=== PATIENT | male | born 1925 | race Caucasian/White ===

== ENCOUNTER 2017-03-13 09:55 | Inpatient (IN) | payer MEDICARE, OTHER ==
[~2017-03-13] VITALS: Ht 177.8 cm; Wt 98.9 kg
[~2017-03-13 09:55] MED LIST: AMIODARONE HCL200 MG PO; ASPIR-LOW81 MG PO; ASPIRIN 81M81 MG/TA2 PO; ASPIRIN E.C. 8181 MG PO; BUMEX0.5 MG PO; CEPHALEXIN500 M1 PO; COUMADIN 3MG3 MG/TAB PO; DILANTIN 100MG100 MG PO; GLUCOPHAGE1000 MG PO; GLUCOTROL XL2.5 MG PO; KEPPRA750 MG PO; LASIX 40MG TABL40 MG PO; NEURONTIN300 MG/CAP PO; PRAVACHOL 20MG20 MG PO; TOPROL XL50 MG PO
[2017-03-13 10:17] LABS: BASO # 0.1 (0.0-0.2); BASO % 0.5 % (0.0-2.0); EOS # 0.1 (0.0-0.7); EOS % 0.7 % (0-4.0); GRAN # 6.9 (1.4-6.5); GRAN % 72.6 % (42.2-75.2); HEMATOCRIT 38.5 % (42.0-52.0); HEMOGLOBIN 12.7 g/dl (13.5-18.0); LYMPH # 1.6 (1.2-3.4); LYMPH % 16.6 % (20.0-51.0); MEAN CELL VOLUME 92 fl (80.0-100.0); MEAN CORPUSCULAR HEMOGLOBIN 30 pg (27.0-31.0); MEAN CORPUSCULAR HGB CONC 33 g/dl (33.0-37.0); MEAN PLATELET VOLUME 9.9 fl (7.4-10.4); MONO # 0.9 (0.1-0.6); PLATELET COUNT 151 K/mm3 (130-400); REDCELL DISTRIBUTION WIDTH-CV 13.6 % (11.5-14.5)
[2017-03-13 10:35] LABS: BILIRUBIN,TOTAL 0.9 mg/dL (0.0-1.0); CALCIUM 9.4 mg/dL (8.4-10.2); CREATININE, serum 0.89 mg/dL (0.66-1.25); POTASSIUM 4.3 mmol/L (3.4-5.0); TOTAL PROTEIN 7.2 gm/dL (6.4-8.2)
[2017-03-13 10:39] LABS: INR 3.1 (0.8-3.0); PROTHROMBIN TIME 37.3 SECONDS (9.7-12.8)
[2017-03-13] MEDS ORDERED: COUMADIN 3MG3 MG/TAB PO (11:03)
[2017-03-13 13:25] VITALS: BP 117/60; PULSE 61
[2017-03-13] MEDS ORDERED: TOPROL XL100 MG PO (13:53)
[2017-03-13] MEDS ORDERED: TYLENOL 325MG325 MG PO (14:12)
[2017-03-13] MEDS ORDERED: MUCINEX 60600 MG/TA1 PO (14:13)
[2017-03-13] MEDS ORDERED: NASAL MOISTURIZ45 ML NS (14:14)
[2017-03-13 15:09] VITALS: BP 114/51; PULSE 61; TEMP 98.3
[2017-03-13 17:23] VITALS: BP 136/62; PULSE 65; TEMP 97.8
[2017-03-13 17:48] LABS: INFLUENZA A NEGATIVE; INFLUENZA B NEGATIVE
[2017-03-13 20:03] VITALS: BP 111/58; PULSE 60; TEMP 97.9
[2017-03-14] VITALS (7 sets, daily range): BP systolic 118–153; BP diastolic 54–71; PULSE 60–69; TEMP 97.6–98.3
[2017-03-14 17:57] LABS: INR 2.3 (0.8-3.0); PROTHROMBIN TIME 27.6 SECONDS (9.7-12.8)
[2017-03-15] VITALS (8 sets, daily range): BP systolic 109–176; BP diastolic 54–76; PULSE 61–90; TEMP 96.8–98.2
[2017-03-15 09:28] LABS: INR 2.3 (0.8-3.0); PROTHROMBIN TIME 27.5 SECONDS (9.7-12.8)
[2017-03-16 05:40] VITALS: BP 154/64; PULSE 35; TEMP 97.6
[2017-03-16 06:34] LABS: BASO % 0.3 % (0.0-2.0); EOS # 0.2 (0.0-0.7); EOS % 2.4 % (0-4.0); GRAN # 4.7 (1.4-6.5); GRAN % 65.5 % (42.2-75.2); HEMATOCRIT 37.3 % (42.0-52.0); LYMPH # 1.6 (1.2-3.4); LYMPH % 22.5 % (20.0-51.0); MEAN CELL VOLUME 93 fl (80.0-100.0); MEAN CORPUSCULAR HEMOGLOBIN 30 pg (27.0-31.0); MEAN CORPUSCULAR HGB CONC 32 g/dl (33.0-37.0); MEAN PLATELET VOLUME 10.1 fl (7.4-10.4); MONO # 0.6 (0.1-0.6); MONO % 8.9 % (1.7-9.3); PLATELET COUNT 168 K/mm3 (130-400); RED BLOOD COUNT 4.03 M/mm3 (4.20-5.60); REDCELL DISTRIBUTION WIDTH-CV 13.4 % (11.5-14.5)
[2017-03-16 06:38] LABS: HEMOGLOBIN 11.9 g/dl (13.5-18.0)
[2017-03-16 06:59] LABS: CREATININE, serum 0.73 mg/dL (0.66-1.25); POTASSIUM 3.9 mmol/L (3.4-5.0)
[2017-03-16 08:04] VITALS: BP 133/67; PULSE 63; TEMP 97.4
[2017-03-16] MEDS ORDERED: COUMADIN 22.5 MG/TAB PO (10:21)
[2017-03-16] MEDS ORDERED: AMOXICILLIN 8751 TAB PO (10:21)
[2017-03-16] MEDS ORDERED: TOPROL XL100 MG PO (10:22)
[2017-03-16 10:41] LABS: INR 2.2 (0.8-3.0)
[2017-03-16 10:51] VITALS: BP 133/67; PULSE 63; TEMP 97.4
== END 2017-03-16 12:22 | DRG 312 ==
LOC: COL.ER 09:55 → MEDICAL 12:06
PROVIDERS: Emergency Medicine; Internal Medicine; Nurse Practitioner Family; Physician Assistant
DX: I95.2 Hypotension due to drugs (principal); T44.7X5A Adverse effect of beta-adrenoreceptor antagonists, initial encounter; I10 Essential (primary) hypertension; E11.9 Type 2 diabetes mellitus without complications; I25.10 Atherosclerotic heart disease of native coronary artery without angina pectoris; Z95.5 Presence of coronary angioplasty implant and graft; I48.2 Chronic atrial fibrillation; Z95.0 Presence of cardiac pacemaker; J32.2 Chronic ethmoidal sinusitis; J32.0 Chronic maxillary sinusitis; Z87.891 Personal history of nicotine dependence; S00.83XA Contusion of other part of head, initial encounter; W18.30XA Fall on same level, unspecified, initial encounter
CPT/HCPCS: 99223-AI; 99232-AI; 99239; J1815; J2405; J7030

== ENCOUNTER 2017-05-14 20:10 | Emergency (ER) | payer MEDICARE, OTHER ==
[~2017-05-14] VITALS: Ht 177.8 cm; Wt 98.6 kg
[~2017-05-14 20:10] MED LIST changes: +AMOXICILLIN 8751 TAB PO; +COUMADIN 22.5 MG/TAB PO; +MUCINEX 60600 MG/TA1 PO; +NASAL MOISTURIZ45 ML NS; +TOPROL XL100 MG PO; +TYLENOL 325MG325 MG PO
[2017-05-14 20:16] VITALS: BP 195/104; PULSE 77; TEMP 97.5
[2017-05-14 20:44] LABS: COLLECTION METHOD CLEAN CATCH
[2017-05-14 20:46] LABS: BASO % 0.5 % (0.0-2.0); EOS # 0.1 (0.0-0.7); EOS % 1.2 % (0-4.0); GRAN # 6.2 (1.4-6.5); GRAN % 71.7 % (42.2-75.2); HEMATOCRIT 39.3 % (42.0-52.0); HEMOGLOBIN 12.8 g/dl (13.5-18.0); LYMPH # 1.6 (1.2-3.4); LYMPH % 18.8 % (20.0-51.0); MEAN CELL VOLUME 92 fl (80.0-100.0); MEAN CORPUSCULAR HEMOGLOBIN 30 pg (27.0-31.0); MEAN CORPUSCULAR HGB CONC 33 g/dl (33.0-37.0); MEAN PLATELET VOLUME 9.9 fl (7.4-10.4); MONO # 0.7 (0.1-0.6); MONO % 7.5 % (1.7-9.3); PLATELET COUNT 176 K/mm3 (130-400); RED BLOOD COUNT 4.27 M/mm3 (4.20-5.60); REDCELL DISTRIBUTION WIDTH-CV 13.7 % (11.5-14.5)
[2017-05-14 20:56] LABS: MUCOUS Present /lpf; PH 5 (5-8); SQUAMOUS EPITHELIAL 0-2 /hpf; URINE APPEARANCE Hazy; URINE BACTERIA None Seen /hpf; URINE BILIRUBIN Negative (NEGATIVE); URINE BLOOD 3+ (NEGATIVE); URINE COLOR Yellow; URINE GLUCOSE 3+ (NEGATIVE); URINE KETONE Negative (NEGATIVE); URINE LEUKOCYTE ESTERASE Trace (NEGATIVE); URINE NITRATE Negative (NEGATIVE); URINE PROTEIN(semi-quant) 1+ (NEGATIVE); URINE RBC >50 /hpf
[2017-05-14 21:00] LABS: ALANINE AMINOTRANSFERASE 22 U/L (21-72); ALBUMIN 4.1 gm/dL (3.5-5.0); ALKALINE PHOSPHATASE 91 U/L (50-136); ANION GAP 11 mmol/L (7-16); AST,SGOT 22 U/L (15-37); BILIRUBIN,TOTAL 0.5 mg/dL (0.0-1.0); BLOOD UREA NITROGEN 23 mg/dL (9-20); CALCIUM 9.3 mg/dL (8.4-10.2); CARBON DIOXIDE 24 mmol/L (22-30); CHLORIDE 103 mmol/L (98-107); CREATININE, serum 0.92 mg/dL (0.66-1.25); GLUCOSE 278 mg/dL (74-106); LIPASE 37 U/L (23-300); POTASSIUM 4.8 mmol/L (3.4-5.0); SODIUM 138 mmol/L (137-145); TOTAL PROTEIN 7.2 gm/dL (6.4-8.2)
[2017-05-14 21:01] LABS: C-REACTIVE PROTEIN < 0.5 mg/dL (0.0-0.9)
[2017-05-14] MEDS ORDERED: NORCO 325 MG-51 TAB PO (21:25)
[2017-05-14] MEDS ORDERED: AMOXICILLIN 8751 TAB PO (21:38)
== END 2017-05-14 22:32 | disposition home or self-care (01) ==
LOC: COL.ER 20:10
PROVIDERS: Family Medicine
DX: N20.1 Calculus of ureter (principal); E11.9 Type 2 diabetes mellitus without complications; I48.91 Unspecified atrial fibrillation; Z95.810 Presence of automatic (implantable) cardiac defibrillator; Z79.01 Long term (current) use of anticoagulants; Z79.84 Long term (current) use of oral hypoglycemic drugs; Z79.82 Long term (current) use of aspirin
CPT/HCPCS: J2405; J3010; J7030

== ENCOUNTER 2017-07-05 12:05 | Emergency (ER) | payer MEDICARE, OTHER ==
[~2017-07-05] VITALS: Ht 177.8 cm; Wt 98.6 kg
[~2017-07-05 12:05] MED LIST changes: +NORCO 325 MG-51 TAB PO
[2017-07-05 12:06] VITALS: TEMP 97.9
[2017-07-05 12:27] LABS: COLLECTION METHOD CLEAN CATCH
[2017-07-05 12:42] LABS: MUCOUS Present /lpf; PH 5 (5-8); SQUAMOUS EPITHELIAL 0-2 /hpf; URINE APPEARANCE Hazy; URINE BACTERIA None Seen /hpf; URINE BILIRUBIN Negative (NEGATIVE); URINE BLOOD 3+ (NEGATIVE); URINE COLOR Yellow; URINE GLUCOSE Negative (NEGATIVE); URINE KETONE Negative (NEGATIVE); URINE LEUKOCYTE ESTERASE Trace (NEGATIVE); URINE NITRATE Negative (NEGATIVE); URINE PROTEIN(semi-quant) Negative (NEGATIVE); URINE RBC >50 /hpf; URINE UROBILINOGEN Negative (NEGATIVE)
[2017-07-05 12:56] LABS: BASO % 0.4 % (0.0-2.0); EOS # 0.1 (0.0-0.7); EOS % 1.7 % (0-4.0); GRAN % 65.1 % (42.2-75.2); HEMOGLOBIN 12.8 g/dl (13.5-18.0); LYMPH # 1.9 (1.2-3.4); LYMPH % 24.4 % (20.0-51.0); MEAN CELL VOLUME 89 fl (80.0-100.0); MEAN CORPUSCULAR HEMOGLOBIN 29 pg (27.0-31.0); MEAN CORPUSCULAR HGB CONC 33 g/dl (33.0-37.0); MEAN PLATELET VOLUME 9.6 fl (7.4-10.4); MONO # 0.6 (0.1-0.6); MONO % 8.3 % (1.7-9.3); PLATELET COUNT 177 K/mm3 (130-400); RED BLOOD COUNT 4.37 M/mm3 (4.20-5.60); REDCELL DISTRIBUTION WIDTH-CV 13.4 % (11.5-14.5)
[2017-07-05 13:01] LABS: INR 2.4 (0.8-3.0); PROTHROMBIN TIME 28.1 SECONDS (9.7-12.8)
[2017-07-05 13:05] LABS: ALBUMIN 3.9 gm/dL (3.5-5.0); BILIRUBIN,TOTAL 0.6 mg/dL (0.0-1.0); CALCIUM 9.3 mg/dL (8.4-10.2); CREATININE, serum 0.84 mg/dL (0.66-1.25); POTASSIUM 4.4 mmol/L (3.4-5.0); TOTAL PROTEIN 7.6 gm/dL (6.4-8.2)
[2017-07-05 13:08] LABS: C-REACTIVE PROTEIN 0.5 mg/dL (0.0-0.9)
[2017-07-05] MEDS ORDERED: FLOMAX 0.40.4 MG/CAP PO (15:09)
[2017-07-05] MEDS ORDERED: NORCO 325 MG-51 TAB PO (15:09)
[2017-07-05] MEDS ORDERED: ZOFRAN 4MG T4 MG/TAB PO (15:09)
[2017-07-05 15:25] VITALS: BP 137/77; PULSE 63
== END 2017-07-05 15:25 | disposition home or self-care (01) ==
LOC: COL.ER 12:05
PROVIDERS: Emergency Medicine
DX: N20.0 Calculus of kidney (principal); I10 Essential (primary) hypertension; I48.91 Unspecified atrial fibrillation; E78.5 Hyperlipidemia, unspecified; I25.10 Atherosclerotic heart disease of native coronary artery without angina pectoris; E11.9 Type 2 diabetes mellitus without complications; G40.909 Epilepsy, unspecified, not intractable, without status epilepticus; Z95.5 Presence of coronary angioplasty implant and graft; Z95.810 Presence of automatic (implantable) cardiac defibrillator; Z98.890 Other specified postprocedural states; Z79.01 Long term (current) use of anticoagulants; Z79.84 Long term (current) use of oral hypoglycemic drugs
CPT/HCPCS: J2405; J3010; J7030; Q9967